=== PATIENT | female | born 1970 | race Caucasian/White ===

== ENCOUNTER 2024-01-21 16:54 | Emergency (ER) | payer MEDICAID, SELFPAY ==
[2024-01-21 17:16] VITALS: BP 134/88; PULSE 94; RESP 18; TEMP 36.6; O2SAT 95; BMI 19.7
--- NOTE | 2024-01-21 17:31 | XR_ITS ---
Examination: PA lateral chest 2 views TECHNIQUE: Upright PA lateral chest 2 views Exam date and time: January 21, 2024 1747 hours Comparison December 23, 2023 INDICATIONS: Coughing beginning 10 days ago. FINDINGS: Pneumonia at the lung bases has cleared Normal heart size Mild to moderate hyperexpansion No pulmonary edema Minimal accentuation of basilar bronchovascular markings IMPRESSION: Bibasilar pneumonia has cleared Mild bibasilar bronchitis pattern
--- NOTE | 2024-01-21 17:31 | PD.EDURI ---
Upper Respiratory Inf. RME/HPI General Chief Complaint: Flu Like Symptoms Stated Complaint: UNRESOLVED FEVER X5 DAY Time Seen by Provider: 01/21/24 17:07 Arrival date/time: 01/21/24 16:54 RME / HPI RME / HPI Narrative: 53-year-old female patient came in for evaluation regarding flulike symptoms. She been having flulike symptoms for the last 5 days, getting worse, associated with nonproductive cough, sore throat, body aches, and fever. Denies any dysuria denies any other complaints no medications taken prior to arrival. Related Data Previous Rx's ?Medication ?Instructions ?Recorded ibuprofen 400 mg tablet 400 mg PO Q8H PRN fever or pain 01/06/23 #30 tabs acetaminophen 500 mg tablet 1,000 mg (2 x 500 mg) PO Q6H PRN 04/23/23 (Tylenol Extra Strength) fever or pain #30 tabs ibuprofen 600 mg tablet 600 mg PO Q6H PRN fever or pain 04/23/23 #30 tabs cefuroxime axetil 500 mg tablet 500 mg PO BID #14 tabs 01/21/24 fexofenadine 60 mg-pseudoephedrine 1 tab PO Q12H PRN nasal congestion 01/21/24 ER 120 mg tablet,ext.release,12 hr #14 tabs (Nohemi-D 12 Hour) ibuprofen 800 mg tablet 800 mg PO TID PRN pain #30 tabs 01/21/24 Allergies Allergy/AdvReac Type Severity Reaction Status Date / Time No Known Allergies Allergy Verified 01/21/24 16:54 Review of Systems Review of Systems Narrative Review of Systems: Review of system reviewed and within normal limits except mentioned in HPI ED Exam Narrative Physical exam: VITAL SIGNS: Reviewed. GENERAL APPEARANCE: Alert and interactive, follows commands, no acute distress, HEAD AND FACE: Non-traumatic. ENT: PERRL, pink conjunctivitis, eyelid no trauma, Mucous membrane moist. NECK: Supple, nontender, no nuchal rigidity. CHEST: No tenderness, no crepitus, no paradoxical movement, no retractions. LUNGS: Clear, well ventilated, symmetric, no rales, no wheezing, no ronchi, no stridor, good breath sounds bilaterally. HEART: Regular rate, regular rhythm, no murmur, no gallops. ABDOMEN: Soft, positive bowel sounds, nondistended, no guarding, nontender, no rebound, no masses, RECTAL: Deferred. GENITAL: Deferred. NEUROLOGICAL: Gross motor function intact sensory function intact, Appropriate for age. MUSCULOSKELETAL: low back nontender, full range of motion. EXTREMITIES: Nontender, full range of motion. SKIN: Color pink, dry, no rash, no lacerations, no abrasions, no contusions. LYMPHATICS: Deferred. Course Quality Measures none Orders Category Date Time Status Bedside COVID-19 Antigen Test NOW Care 01/21/24 17:31 Active Bedside Influenza A&B Antigen Test NOW Care 01/21/24 17:31 Active XR chest 2V Stat Exams 01/21/24 17:31 Completed UA, C/S IF [Urinalysis, C/S if Indicated] Stat Lab 01/21/24 18:03 Completed Urine Culture Stat Lab 01/21/24 18:03 Received cefTRIAXone [Rocephin] 1,000 mg Med 01/21/24 19:47 Discontinued Lidocaine 1% 20 ml [Xylocaine 1% 20 ML] 2.1 ml IM X1 Vital Signs Vital signs: Vital Signs Temperature 98 F 01/21/24 17:16 Pulse Rate 94 01/21/24 17:16 Respiratory Rate 18 01/21/24 17:16 Blood Pressure 134/88 H 01/21/24 17:16 Pulse Oximetry (%) 95 01/21/24 17:16 Oxygen Delivery Method Room Air 01/21/24 17:16 Upper Respiratory Infection MDM Narrative MDM Narrative:: 53-year-old female patient came in for evaluation regarding flulike symptoms. She been having flulike symptoms for the last 5 days, getting worse, associated with nonproductive cough, sore throat, body aches, and fever. Denies any dysuria denies any other complaints no medications taken prior to arrival. Laboratory workup is significant for UTI. Patient tested negative for COVID and influenza. The rest of the labs unremarkable. Patient received ceftriaxone IM in the ED. Patient stable for discharge Patient data External records reviewed:: None Clinical information provided by:: patient Social determinants that could affect healthcare access:: none Patient has the following chronic illnesses:: None How is presenting disease/condition affected by chronic disease/condition?: no chronic disease Evaluation data The following diagnostics were reviewed and interpreted by me:: lab results and radiology exam(s) Lab and/or radiology exams considered but not ordered:: None Interpretation Summary: Laboratory workup is significant for UTI. Patient tested negative for COVID and influenza. The rest of the labs unremarkable. Medications / Prescriptions Medications or Prescriptions considered but not ordered:: None Medication administrations:: Medication Administration History Discontinued Medications Ceftriaxone Sodium 1,000 mg/ (Lidocaine HCl 2.1 ml) 0 mg IM X1 ONE Stop: 01/21/24 19:48 Last Admin: 01/21/24 20:07 Dose: 1,000 mg Documented By: KG Ceftriaxone IM Consultations Consultation(s) initiated? (list below): No Diagnosis Upper Respiratory Differential Diagnosis: upper respiratory infection and viral infection Most likely diagnosis given after review of the tests above:: UTI, nasal congestion Admission Indicated Admission indicated?: not indicated Explain why admission is indicated or not indicated:: Stable Admission Request Was there a request for admission?: No Disposition Plan Disposition Plan: Discharge Discharge Attestation Discharge Attestation: The patient was given an opportunity to ask questions and understood the discharge instructions. Discharge instructions specifically effects, indications for sooner follow up or return to the emergency department, and the expected course of current diagnosis. Patient condition: Stable Discharge Plan Plan Patient Disposition: HOME (Self Care) Disposition Comment: stable Prescriptions/Referrals Prescriptions/Med Rec: New cefuroxime axetil 500 mg tablet 500 mg PO BID Qty: 14 0RF fexofenadine-pseudoephedrine [Nohemi-D 12 Hour] 60-120 mg tablet extended release 12 hr 1 tab PO Q12H PRN (Reason: nasal congestion) Qty: 14 0RF ibuprofen 800 mg tablet 800 mg PO TID PRN (Reason: pain) Qty: 30 0RF No Action ibuprofen 600 mg tablet 600 mg PO Q6H PRN (Reason: fever or pain) Qty: 30 0RF acetaminophen [Tylenol Extra Strength] 500 mg tablet 1,000 mg PO Q6H PRN (Reason: fever or pain) Qty: 30 0RF ibuprofen 400 mg tablet 400 mg PO Q8H PRN (Reason: fever or pain) Qty: 30 0RF Referrals: No Primary/Family,Physician [Primary Care Provider] - In 1 week Problem List Clinical Impression: UTI (urinary tract infection), Nasal congestion Patient/Caregiver Discharge Instructions Discharge Activity: activity as tolerated Education Materials: Understanding Urinary Tract ... Additional Instructions: Thank you for the opportunity for serving you today. You are stable for discharged . You are advised to: Follow-up with your PCP in 1 to 2 days Return to ED for worsening of symptoms Increase oral fluids Take medication as prescribed Print Language: Bruneian Stand Alone Forms: Mikaela Award Info., Patient Portal Info Letter PA/SINGING WAITER OR WAITRESS Supervising Physician PA/SINGING WAITER OR WAITRESS Supervising Physician: MD Nerissa
[2024-01-21 18:19] LABS: Collection Type, Urine Clean Catch
[2024-01-21 18:36] LABS: Bacteria,Urine Rare; Bilirubin,Urine Negative (Negative); Blood,Urine 1+ (Negative); Clarity,Urine Turbid (Clear/Hazy); Color,Urine Yellow (Lt Yel-Yel); Glucose, Urine Negative (Negative); Ketones,Urine Negative (Negative); Leukocyte Esterase,Urine Positive (Negative); Nitrite,Urine Negative (Negative); Protein,Urine 2+ (Neg - Trace); RBC,Urine 74 /hpf (0-3); Specific Gravity,Urine 1.026 (1.001-1.035); Squamous Epithelial Cell,Urine 8 /hpf (0-5); Urobilinogen,Urine Negative mg/dL (0.0-1.0); WBC,Urine 150 /hpf (0-5)
[2024-01-21 18:38] LABS: Culture Indicated,Urine Yes
[2024-01-21] MEDS: cefTRIAXone 1,000 MG, LIDOCAINE 1% 20 ML 2.1 ML IM (20:07)
[2024-01-21 20:50] VITALS: BP 115/83; PULSE 100; RESP 18; TEMP 36.8; O2SAT 100
== END 2024-01-21 20:52 | disposition home or self-care (01) ==
PROVIDERS: Nurse Practitioner Family; Emergency Provider Emergency Medicine
DX: N39.0 Urinary tract infection, site not specified (principal); R09.81 Nasal congestion; R05.9 Cough, unspecified
CPT/HCPCS: 71046; 81001; 87086; 96372; 99283; J0696; J3490

== ENCOUNTER 2024-02-06 10:37 | Emergency (ER) | payer MEDICAID, SELFPAY ==
[2024-02-06 10:43] VITALS: BP 130/83; PULSE 90; RESP 18; TEMP 36.7; O2SAT 95; BMI 19.1
--- NOTE | 2024-02-06 11:59 | PD.EDRME ---
Rapid Medical Screening Exam E Arrival date/time: 02/06/24 10:37 This is a 82-year-old female that comes in with complaints of abdominal pain that started last night. Patient also complains of nausea. Patient denies vomiting and diarrhea. Patient also denies fever. Patient denies any urinary symptoms. Denies past medical history I have greeted and performed a focused initial assessment of this patient. Initial appropriate labs ordered at this time. A comprehensive ED assessment and evaluation of the patient and analysis of all test and completion of medical decision making process will be conducted by additional ED provider. Chief Complaint: Abdominal Pain Time Seen by Provider: 02/06/24 11:54 Vital signs: Vital Signs Temperature 98.0 F 02/06/24 10:43 Pulse Rate 90 02/06/24 10:43 Respiratory Rate 18 02/06/24 10:43 Blood Pressure 130/83 02/06/24 10:43 Pulse Oximetry (%) 95 02/06/24 10:43 Oxygen Delivery Method Room Air 02/06/24 10:43
[2024-02-06 12:38] LABS: Basophils % (Auto) 0 % (0-2.5); Eosinophils # (Auto) 0.1 Thou/mm3 (0.0-0.5); Eosinophils % (Auto) 2 % (0-10); Hematocrit 48.1 % (36.0-46.0); Immature Granulocytes % (Auto) 0 % (0-0); Immature Granulocytes Auto 0.02 Thou/mm3 (0.00-0.00); Lymphocytes # (Auto) 1.9 Thou/mm3 (1.0-4.8); Lymphocytes % (Auto) 24 % (10-50); Mean Corpuscular HGB Conc 33.3 g/dl (31.0-37.0); Mean Corpuscular Hemoglobin 30.3 pg (25.0-35.0); Mean Corpuscular Volume 91 fL (80-100); Monocytes # (Auto) 0.4 Thou/mm3 (0.0-0.8); Monocytes % (Auto) 5 % (0-12); Neutrophils # (Auto) 5.6 Thou/mm3 (1.8-7.7); Neutrophils % (Auto) 69 % (37-80); Nucleated Red Blood Cell % 0 /100 WBC (0); Platelet Count 191 Thou/mm3 (140-440); RDW Standard Deviation 44.7 fL (36.4-46.3); Red Blood Count 5.28 Miln/mm3 (4.00-5.20); White Blood Count 8.1 Thou/mm3 (3.6-11.0)
[2024-02-06 12:48] LABS: Alanine Aminotransferase 22 U/L (10-49); Albumin, Serum 5.2 gm/dL (3.5-5.0); Albumin/Globulin Ratio 1.7 (1.2-2.2); Alkaline Phosphatase 100 U/L (46-116); Anion Gap 7 (7-16); Aspartate Amino Transferase 23 U/L (0-34); BUN/Creatinine Ratio 20 Ratio (12-20); Bilirubin,Total 0.4 mg/dL (0.3-1.2); Blood Urea Nitrogen 16 mg/dL (9-23); Calcium 9.6 mg/dL (8.3-10.6); Calcium (Corrected) 9.6 mg/dL (8.5-10.1); Carbon Dioxide 25.6 mMol/L (20.0-31.0); Chloride 103 mMol/L (98-107); Creatinine (Component) 0.8 mg/dL (0.6-1.3); Estimated Creatinine Clearance 67.7 mL/min (>60); Glucose 109 mg/dL (74-106); Lipase 57 U/L (12-53); Osmolality,Calculated 274 (275-295); Potassium 4.2 mMol/L (3.4-5.1); Sodium 136 mMol/L (136-145); Total Protein 8.2 gm/dL (5.7-8.2); eGFR > 60 See Note
[2024-02-06 13:01] LABS: Collection Type, Urine Voided
[2024-02-06 13:39] LABS: Bacteria,Urine Rare; Bilirubin,Urine Negative (Negative); Clarity,Urine Turbid (Clear/Hazy); Color,Urine Lt-Yellow (Lt Yel-Yel); Culture Indicated,Urine Contaminated; Glucose, Urine Negative (Negative); Ketones,Urine Negative (Negative); Leukocyte Esterase,Urine Positive (Negative); Nitrite,Urine Negative (Negative); PH,Urine 5.5 (5.0-7.0); Protein,Urine Negative (Neg - Trace); RBC,Urine 24 /hpf (0-3); Specific Gravity,Urine 1.024 (1.001-1.035); Squamous Epithelial Cell,Urine 13 /hpf (0-5); Urobilinogen,Urine Negative mg/dL (0.0-1.0); WBC,Urine 11 /hpf (0-5)
[2024-02-06 13:40] LABS: HCG Qualitative,Urine Negative
[2024-02-06 13:41] LABS: Blood,Urine 1+ (Negative)
--- NOTE | 2024-02-06 13:54 | PD.EDABDPN ---
ED Abdominal Pain RME/HPI General Chief Complaint: Abdominal Pain Stated complaint: Abdominal pain since last night Time seen by provider: 02/06/24 11:54 Arrival date/time: 02/06/24 10:37 RME / HPI RME / HPI narrative: 02/06/24 10:37 This is a 82-year-old female that comes in with complaints of abdominal pain that started last night. Patient also complains of nausea. Patient denies vomiting and diarrhea. Patient also denies fever. Patient denies any urinary symptoms. Denies past medical history I have greeted and performed a focused initial assessment of this patient. Initial appropriate labs ordered at this time. A comprehensive ED assessment and evaluation of the patient and analysis of all test and completion of medical decision making process will be conducted by additional ED provider. DR. BARRAZA MAIN ED EVALUATION 54 year old female presents to the ED for complaint of epigastric abdominal pain beginning last night. Described as aching in sensation, rating as moderate. Accompanied by nausea. Denies fevers, vomiting, diarrhea, or urinary symptoms. Denies any history of similar pain or surgeries on abdomen. Patient admits to using methamphetamine 4 days ago. Denies use of other drugs or alcohol. Related Data Previous Rx's ?Medication ?Instructions ?Recorded ibuprofen 400 mg tablet 400 mg PO Q8H PRN fever or pain 01/06/23 #30 tabs acetaminophen 500 mg tablet 1,000 mg (2 x 500 mg) PO Q6H PRN 04/23/23 (Tylenol Extra Strength) fever or pain #30 tabs ibuprofen 600 mg tablet 600 mg PO Q6H PRN fever or pain 04/23/23 #30 tabs cefuroxime axetil 500 mg tablet 500 mg PO BID #14 tabs 01/21/24 fexofenadine 60 mg-pseudoephedrine 1 tab PO Q12H PRN nasal congestion 01/21/24 ER 120 mg tablet,ext.release,12 hr #14 tabs (Nohemi-D 12 Hour) ibuprofen 800 mg tablet 800 mg PO TID PRN pain #30 tabs 01/21/24 Allergies Allergy/AdvReac Type Severity Reaction Status Date / Time No Known Allergies Allergy Verified 01/21/24 16:54 Review of Systems Review of Systems Narrative Review of Systems: GEN: No fever, no chills, no weight loss EYES: No discharge, no visual changes, no pain HEENT: No ear pain, no congestion, no sore throat PULM: No shortness of breath, no cough, no congestion CV: No chest pain, no dyspnea on exertion, no palpitations GI: + nausea, no vomiting, no diarrhea, +pain, no constipation : No frequency, no urgency and no dysuria MUSC/SKEL No joint pain, no back pain SKIN: No rash PSYCH: No hallucinations, no depression HEME/LYMPH: No easy bleeding or bruising tendencies NEURO: No weakness, no headache Past Medical History Past Medical History CARDIAC: Negative Cardiac Disorders or Congestive Heart Failure RESPIRATORY: Negative Chronic Obstructive Pulmonary Disease (COPD) or Asthma GENITOURINARY: Negative Renal Disease ENDOCRINE: Negative Diabetes Mellitus Type 1 or Diabetes Mellitus Type 2 HEMATOLOGIC: Negative Sickle Cell Disease Social History SMOKING STATUS: Current some day smoker SUBSTANCE USE: marijuana and methamphetamine ED Exam Narrative Physical exam: GENERAL APPEARANCE: Well hydrated, well nourished, anxious and crying. VITALS: All vitals were reviewed and the pulse ox is 95% on room air which is normal according to my interpretation. HEENT: Normocephalic, atramatic, EOMI, EACs are patent. There is no bulge or retraction. Throat without erythema or exudate. Moist oromucosa. No jaundice NECK: Supple, no JVD or bruits. CARDIOVASCULAR: Heart regular without S3-S4 or murmur. No rubs or gallops. LUNGS/CHEST: Clear to auscultation bilaterally. No rales, rhonchi, or wheezing. Normal inspection. ABDOMEN: Soft, epigastric and right upper quadrant tenderness to palpation, mild tenderness to the right lower quadrant, with normal bowel sounds. No pulsatile masses. No rebound, rigidity, or guarding. No incarcerated hernia. Normal inspection and palpation. EXTREMITIES: Normal inspection and palpation. No edema, clubbing, or cyanosis. Intact CSM SKIN: Warm and dry without rashes. Normal inspection. MUSCULOSKELETAL: Normal inspection. No gross deformity, full ROM all extremities NEURO: Alert and oriented x3. Cranial nerves II through XII grossly intact. There are no other motor or sensory deficits noted. PSYCHIATRIC: Anxious and crying, cooperative. No psychosis. Course Quality Measures none Orders Category Date Time Status CT abdomen pelvis wo con Stat Exams 02/06/24 14:06 Completed CBC Stat Lab 02/06/24 12:10 Completed Comprehensive Metabolic Panel Stat Lab 02/06/24 12:10 Completed HCG Qualitative,Urine Stat Lab 02/06/24 12:43 Completed Lipase Stat Lab 02/06/24 12:10 Completed Urinalysis, C/S if Indicated Stat Lab 02/06/24 12:43 Completed Vital Signs Vital signs: Vital Signs Temperature 98.0 F 02/06/24 10:43 Pulse Rate 90 02/06/24 10:43 Respiratory Rate 18 02/06/24 10:43 Blood Pressure 130/83 02/06/24 10:43 Pulse Oximetry (%) 95 02/06/24 10:43 Oxygen Delivery Method Room Air 02/06/24 10:43 Abdominal Pain MDM MDM Narrative MDM Narrative:: I, Comfort Stephens, lazara scribing for and in the presence of Dr. Barraza. CBC negative. CMP negative. Lipase is 57. UA is contaminated. test is negative. CT of the abdomen and pelvic reviewed by and interpreted by me as follow. Right ovarian cyst 3 cm. No free fluid. No free air. No obstruction of the bowel. Liver and kidneys unremarkable. Pancreas is also unremarkable. No pericecal stranding I gave the patient copy of the CT report to follow-up with PMD. There is no surgical abdomen at this time. Patient data External records reviewed:: [facility] previous records (I reviewed ED visit on 01/21/2024) Clinical information provided by:: patient Social determinants that could affect healthcare access:: substance use (Methamphetamine, homelessness ) Patient has the following chronic illnesses:: No chronic medical hx reported How is presenting disease/condition affected by chronic disease/condition?: no chronic disease Evaluation data The following diagnostics were reviewed and interpreted by me:: lab results Lab and/or radiology exams considered but not ordered:: None Interpretation Summary: Ordering Physician: Buster Barraza MD Date of Service: 02/06/24 Procedure(s): CT abdomen pelvis wo con Accession Number(s): [id number] cc: Shabbir Shaw MD; NO PRIMARY/FAMILY,PHYSICIAN; Buster Barraza MD~ Examination: CT abdomen and pelvis without contrast. Coronal 3-D reconstructions. Sagittal 2-D reconstructions. Date and time of exam:February 06, 2024 1432 hrs. Comparison May 15, 2023 Indications: Mid abdominal pain beginning 2 days ago CTDI: vol (mGy): 5.13 DLP: (mGycm): 225 Technique: Axial images of the abdomen have been obtained, 3 mm slice thickness Intravenous contrast material has not been administered. Low dose protocols were performed. One or more of the following dose reduction techniques were used; automated exposure control, adjustment of the mA and/or KV according to patient size, use of iterative reconstruction technique. Findings: No focal liver or splenic lesions No gallstones No pancreatic mass No renal or ureteral calculi Aorta normal size Normal appendix No bowel obstruction No diverticulitis No uterine mass 3 cm right adnexal cyst Contracted urinary bladder Mild distention posteriorly L5-S1 Impression: No renal or ureteral calculi, no hydronephrosis Normal appendix No bowel obstruction or diverticulitis Recommend pelvic sonography to confirm 3 cm right adnexal cyst Dictated By: Shabbir Shaw MD Signed By: <Electronically signed by Shabbir Shaw MD in OV> 02/06/24 1509 Medications / Prescriptions Medications or Prescriptions considered but not ordered:: None Medication administrations:: See above Consultations Consultation(s) initiated? (list below): No Diagnosis Differential diagnosis abdominal pain: abdominal pain, gastroenteritis and other (Gastritis, viral illness) Most likely diagnosis given after review of the tests above:: Right ovarian cyst Admission Indicated Admission indicated?: not indicated Admission Request Was there a request for admission?: No Disposition Plan Disposition Plan: Discharge Discharge Attestation Discharge Attestation: The patient and all family members were given an opportunity to ask questions and understood the discharge instructions. Discharge instructions specifically effects, indications for sooner follow up or return to the emergency department, and the expected course of current diagnosis. Patient condition: Stable Discharge Plan Plan Patient Disposition: HOME (Self Care) Disposition Comment: Stable and improved Prescriptions/Referrals Prescriptions/Med Rec: No Action ibuprofen 600 mg tablet 600 mg PO Q6H PRN (Reason: fever or pain) Qty: 30 0RF acetaminophen [Tylenol Extra Strength] 500 mg tablet 1,000 mg PO Q6H PRN (Reason: fever or pain) Qty: 30 0RF cefuroxime axetil 500 mg tablet 500 mg PO BID Qty: 14 0RF fexofenadine-pseudoephedrine [Nohemi-D 12 Hour] 60-120 mg tablet extended release 12 hr 1 tab PO Q12H PRN (Reason: nasal congestion) Qty: 14 0RF ibuprofen 800 mg tablet 800 mg PO TID PRN (Reason: pain) Qty: 30 0RF ibuprofen 400 mg tablet 400 mg PO Q8H PRN (Reason: fever or pain) Qty: 30 0RF Referrals: No Primary/Family,Physician [Primary Care Provider] - In 1 week Problem List Clinical Impression: Abdominal pain, Ovarian cyst Patient/Caregiver Discharge Instructions Education Materials: Abdominal Pain, ED Ovarian Cyst Additional Instructions: Take Motrin for ache and pain. Follow-up with your doctor in 3 days. Please show your doctor copy of the CT report that I gave you. Return to nearest ER if condition worsens or if new symptoms develop especially fever. Print Language: Wolof Stand Alone Forms: Mikaela Award Info., Patient Portal Info Letter
--- NOTE | 2024-02-06 14:06 | XR_ITS ---
Examination: CT abdomen and pelvis without contrast. Coronal 3-D reconstructions. Sagittal 2-D reconstructions. Date and time of exam:February 06, 2024 1432 hrs. Comparison May 15, 2023 Indications: Mid abdominal pain beginning 2 days ago CTDI: vol (mGy): 5.13 DLP: (mGycm): 225 Technique: Axial images of the abdomen have been obtained, 3 mm slice thickness Intravenous contrast material has not been administered. Low dose protocols were performed. One or more of the following dose reduction techniques were used; automated exposure control, adjustment of the mA and/or KV according to patient size, use of iterative reconstruction technique. Findings: No focal liver or splenic lesions No gallstones No pancreatic mass No renal or ureteral calculi Aorta normal size Normal appendix No bowel obstruction No diverticulitis No uterine mass 3 cm right adnexal cyst Contracted urinary bladder Mild distention posteriorly L5-S1 Impression: No renal or ureteral calculi, no hydronephrosis Normal appendix No bowel obstruction or diverticulitis Recommend pelvic sonography to confirm 3 cm right adnexal cyst
[2024-02-06 15:38] VITALS: BP 104/88; PULSE 81; RESP 16; O2SAT 96
== END 2024-02-06 16:34 | disposition home or self-care (01) ==
PROVIDERS: Nurse Practitioner Family; Emergency Provider Emergency Medicine
DX: N83.201 Unspecified ovarian cyst, right side (principal)
CPT/HCPCS: 36415; 74176; 80053; 81001; 81025; 83690; 85025; 99284

== ENCOUNTER 2024-07-17 10:14 | Emergency (ER) | payer MEDICAID, SELFPAY ==
[2024-07-17 10:24] VITALS: BP 119/72; PULSE 86; RESP 16; TEMP 36.3; O2SAT 96
--- NOTE | 2024-07-17 10:30 | XR_ITS ---
Examination: PA lateral chest 2 views TECHNIQUE: Upright PA lateral chest 2 views Exam date and time: July 17, 2024 1142 hours INDICATIONS: Upper chest pain one week FINDINGS: Suspicious for early pneumonia in the right middle lobe Normal heart size Moderate hyperexpansion IMPRESSION: Suspicious for early pneumonia right middle lobe, recommend follow-up chest imaging
--- NOTE | 2024-07-17 11:31 | EDNOTE_ITS ---
ED Chest Pain RME/HPI General Chief Complaint: Chest Pain Stated Complaint: RIGHT UPPER CX PAIN POST TRAUMA; RIGHT FACE PAIN Time Seen by Provider: 07/17/24 10:21 Arrival date/time: 07/17/24 10:14 54-year-old female presents to the emergency department today with complaints of right upper chest wall pain patient reports had an injury approximately 1 week ago. Patient also reports that she has a pimple inside of her nose reports drainage from that area Limitations: no limitations Related Data Previous Rx's ?Medication ?Instructions ?Recorded ibuprofen 400 mg tablet 400 mg PO Q8H PRN fever or p ain 01/06/23 #30 tabs acetaminophen 500 mg tablet 1,000 mg (2 x 500 mg) PO Q 6H PRN 04/23/23 (Tylenol Extra Strength) fever or pain #30 tabs ibuprofen 600 mg tablet 600 mg PO Q6H PRN fever or p ain 04/23/23 #30 tabs cefuroxime axetil 500 mg tablet 500 mg PO BID #14 tabs 01/21/24 fexofenadine 60 mg-pseudoephedrine 1 tab PO Q12H PRN n melissa congestion 01/21/24 ER 120 mg tablet,ext.release,12 hr #14 tabs (Nohemi-D 12 Hour) ibuprofen 800 mg tablet 800 mg PO TID PRN pain #30 t abs 01/21/24 ibuprofen 600 mg tablet 600 mg PO Q6H #30 tabs 07/17 sulfamethoxazole 800 1 tab PO BID 7 days #14 tabs 07/17/24 mg-trimethoprim 160 mg tablet (Bactrim DS) Allergies Allergy/AdvReac Type Severity Reaction Status Date / Time No Known Allergies Allergy Verified 07/17/24 10:19 Review of Systems Review of Systems Systems Reviewed: All systems reviewed, normal except as documented Constitutional Constitutional: Reports system reviewed and no additional complaints, except as documented, Denies fever(s) and Denies headache(s) Eyes Eyes: Reports system reviewed and no additional complaints, except as documented and Denies blurry vision ENT Ears, Nose, Mouth, and Throat: Reports system reviewed and no additional complaints, except as documented, Denies headache(s), Denies nasal congestion and Denies nasal discharge Cardiovascular Cardiovascular: Reports system reviewed and no additional complaints, except as documented, Reports chest pain (Right-sided chest wall pain) and Denies dyspnea Respiratory Respiratory: Reports system reviewed and no additional complaints, except as documented, Denies chest congestion, Denies cough and Denies dyspnea Gastrointestinal Gastrointestinal: Reports system reviewed and no additional complaints, except as documented and Denies abdominal pain Integumentary/Breasts Skin/Breast: Reports system reviewed and no additional complaints, except as documented and Denies rash Neurologic Neurologic: Reports system reviewed and no additional complaints, except as documented, Reports as per HPI and Denies headache(s) Past Medical History Past Medical History CARDIAC: Negative Cardiac Disorders or Congestive Heart Failure RESPIRATORY: Negative Chronic Obstructive Pulmonary Disease (COPD) or Asthma GENITOURINARY: Negative Renal Disease ENDOCRINE: Negative Diabetes Mellitus Type 1 or Diabetes Mellitus Type 2 HEMATOLOGIC: Negative Sickle Cell Disease OTHER HISTORY: Negative Autoimmune Disease Family History FAMILY HISTORY: Negative Family Psychiatric Problems, Family Respiratory Disorders, Family Cardiac Disorders, Family Gastrointestinal Problems, Family Cancer, Family Surgery or Family Anesthesia Reaction Social History SMOKING STATUS: Current some day smoker SUBSTANCE USE: marijuana and methamphetamine ED Exam General Limitations: Present no limitations General appearance: Present alert and in no apparent distress Head Head exam: Present atraumatic, normocephalic and normal inspection Eye Eye exam: Present normal appearance, PERRL and EOMI; Absent conjunctival injection ENT ENT exam: Present normal oropharynx and mucous membranes moist Expanded ENT Exam Nose/Mouth: 2 1. Drainage/small abscess Neck Neck exam: Present normal inspection, full ROM and trachea midline Chest Chest inspection: Present normal inspection and symmetric chest wall rise Respiratory Respiratory exam: Present normal lung sounds bilaterally Cardiovascular Cardiovascular exam: Present regular rate, normal rhythm and normal heart sounds Abdominal Exam Abdominal exam: Present soft and normal bowel sounds; Absent distention, tenderness, guarding, rebound or rigidity Extremities Exam Extremities exam: Present normal inspection and full ROM Back Exam Back exam: Present normal inspection and full ROM Neurological Exam Neurological exam: Present alert, oriented X3, CN II-XII intact, normal gait and reflexes normal; Absent motor sensory deficit Psychiatric Psychiatric exam: Present normal affect and normal mood Skin Skin exam: Present warm, dry, intact and normal color Course Quality Measures none Orders Category Date Time Status XR chest 2V Stat Exams 07/17/24 10:30 Completed Vital Signs Vital signs: Vital Signs Temperature 97.4 F 07/17/24 10:24 Pulse Rate 86 07/17/24 10:24 Respiratory Rate 16 07/17/24 10:24 Blood Pressure 119/72 07/17/24 10:24 Pulse Oximetry (%) 96 07/17/24 10:24 Oxygen Delivery Method Room Air 07/17/24 10:24 O2 saturation 96% room air within normal limits Chest Pain MDM Narrative MDM Narrative:: 54-year-old female presents to the emergency department today with complaints of right upper chest wall pain patient reports had an injury approximately 1 week ago. Patient also reports that she has a pimple inside of her nose reports drainage from that area On exam patient well-appearing patient does not appear toxic in no acute distress On exam patient has what appears to be a pimple inside of her nose which is draining Chest x-ray obtained no acute emergent findings noted Patient be treated the course of antibiotics Patient discharged home in no distress to follow-up with primary care doctor in the next 24 to 48 hours and for any worsening symptoms to return to the ER immediately Patient data External records reviewed:: [facility] previous records Clinical information provided by:: patient Social determinants that could affect healthcare access:: none Patient has the following chronic illnesses:: None How is presenting disease/condition affected by chronic disease/condition?: no chronic disease Evaluation data The following diagnostics were reviewed and interpreted by me:: radiology exam(s) Lab and/or radiology exams considered but not ordered:: Radiology obtain Interpretation Summary: Reviewed by me Medications / Prescriptions Medications or Prescriptions considered but not ordered:: Given Medication administrations:: Given Consultations Consultation(s) initiated? (list below): No Diagnosis Chest Pain Differential Diagnosis: fracture of rib, pneumothorax, costochondritis and chest pain Most likely diagnosis given after review of the tests above:: Chest wall pain, abscess Admission Indicated Admission indicated?: not indicated Admission Request Was there a request for admission?: No Disposition Plan Disposition Plan: Discharge Discharge Attestation Discharge Attestation: The patient and all family members were given an opportunity to ask questions and understood the discharge instructions. Discharge instructions specifically effects, indications for sooner follow up or return to the emergency department, and the expected course of current diagnosis. Patient condition: Stable Discharge Plan Plan Patient Disposition: HOME (Self Care) Discharge Disposition comment: Stable Prescriptions/Referrals Prescriptions/Med Rec: New sulfamethoxazole-trimethoprim [Bactrim DS] 800-160 mg tablet 1 tab PO BID 7 Days Qty: 14 0RF ibuprofen 600 mg tablet 600 mg PO Q6H Qty: 30 0RF No Action ibuprofen 600 mg tablet 600 mg PO Q6H PRN (Reason: fever or pain) Qty: 30 0RF acetaminophen [Tylenol Extra Strength] 500 mg tablet 1,000 mg PO Q6H PRN (Reason: fever or pain) Qty: 30 0RF cefuroxime axetil 500 mg tablet 500 mg PO BID Qty: 14 0RF fexofenadine-pseudoephedrine [Nohemi-D 12 Hour] 60-120 mg tablet extended release 12 hr 1 tab PO Q12H PRN (Reason: nasal congestion) Qty: 14 0RF ibuprofen 800 mg tablet 800 mg PO TID PRN (Reason: pain) Qty: 30 0RF ibuprofen 400 mg tablet 400 mg PO Q8H PRN (Reason: fever or pain) Qty: 30 0RF Referrals: No Primary/Family,Physician [Primary Care Provider] - 07/18/24 Problem List Clinical Impression: Chest wall pain, Infection of nose Patient/Caregiver Discharge Instructions Education Materials: Medicine for Pain Additional Instructions: Please follow up with your primary care doctor in the next 24-48hrs for any worsening symptoms return here immediately Print Language: Togolese Stand Alone Forms: Mikaela Award Info., Patient Portal Info Letter PA/RESIDENTIAL CARPENTER Supervising Physician PA/RESIDENTIAL CARPENTER Supervising Physician: Dr. Bess
== END 2024-07-17 12:29 | disposition home or self-care (01) ==
PROVIDERS: Emergency Provider Emergency Medicine
DX: S29.9XXA Unspecified injury of thorax, initial encounter (principal); L08.9 Local infection of the skin and subcutaneous tissue, unspecified; X58.XXXA Exposure to other specified factors, initial encounter
CPT/HCPCS: 71046; 99282